=== PATIENT | female | born 1985 | race Caucasian/White ===

== ENCOUNTER 2018-07-29 06:08 | Day surgery (SDC) | payer OTHER ==
[~2018-07-29] VITALS: Ht 165.1 cm; Wt 98.0 kg
[~2018-07-29 06:08] MED LIST: ACET325 PO; DIAZ5 PO; DIPH50 PO; HYDACE5 PO; HYDMOR2 PO; IBUP800 PO; LABE200 PO
--- NOTE | 2018-07-29 06:51 | NUR ---
History, Chart, Medications and Allergies reviewed before start of procedure. Patient confirms NPO status and agrees with scheduled surgery. Lungs clear T/O to Auscultation. Patient reports completing Chlorhexadine shower X2 prior to admission to hospital.
[2018-07-29] MEDS ORDERED: VITAMIN D310000 UNI1 PO (06:52)
[2018-07-29] MEDS ORDERED: PROGESTERONE PO (06:52)
[2018-07-29] MEDS ORDERED: ALBU90OI6 INH (06:53)
--- NOTE | 2018-07-29 13:24 | NUR ---
ROUNDING: PT IS VERY ANXIOUS POST OP. PT DOES NOT WANT MEDICATIONS, SHE DOES NOT WANT HER LAGOS, STATES THAT SHE JUST WANTS TO GO HOME BEACAUSE SHE NEVER WANTED TO HAVE SURGERY. PT STATES SHE WANTS HELP CLEANING HER ELLIOT AREA BUT DOES NOT WANT TO GET OOB AND DOES NOT WANT STAFF HELPING HER. NOTIFIED OF PT'S ANXIOUSNESS. IN ROOM TO SEE PATIENT AND REASSURE HER ON HOSPITAL ROUTINE AND ORDERS. STATES PT CAN SHOWER THIS EVENING IF SHE WANTS AND THAT HER LAGOS CAN BE DC'D IF PT REQUESTS. PT CALM AFTER SPEAKING WITH . MEDICATED FOR PAIN NEEDED.
--- NOTE | 2018-07-29 19:02 | NUR ---
pt has been stable post op. pt calm and cooperative after dr came in to explain plan of care. pain controlled with prn meds. pt clinton dc'd per request, has not had void yet. explained bladder scan and straight cath protocol. pt up to shower this afternoon. small amt drainage to steri strips. reinforced prn. moderate amt mil drainage with some small clots. pt not passing flatus yet. ambulated hallway x1.
[2018-07-30 05:51] LABS: BASOPHILS ABSOLUTE AUTO 0.02 K/mm3 (0.00-0.23); BASOPHILS PERCENT AUTO 0 % (0-2); EOSINOPHILS PERCENT AUTO 0 % (0-6); Hematocrit 35.4 % (33.0-51.0); Hemoglobin 11.4 g/dL (11.5-16.0); IMMATURE GRAN ABSOLUTE AUTO 0.09 K/mm3 (0.00-0.10); IMMATURE GRAN PERCENT AUTO 1 % (0-1); LYMPHOCYTES ABSOLUTE AUTO 1.53 K/mm3 (0.84-5.20); LYMPHOCYTES PERCENT AUTO 10 % (21-46); MONOCYTES ABSOLUTE AUTO 0.85 K/mm3 (0.16-1.47); MONOCYTES PERCENT AUTO 6 % (4-13); Mean Corpuscular HGB 29.4 pg (26.0-34.0); Mean Corpuscular HGB Conc 32.2 g/dL (31.5-36.5); Mean Corpuscular Volume 91 fL (80-100); Mean Platelet Volume 11.3 fL (9.1-12.4); NEUTROPHILS ABSOLUTE AUTO 12.34 K/mm3 (1.96-9.15); NEUTROPHILS PERCENT AUTO 83 % (41-73); Platelet Count 228 K/mm3 (150-400); RDW Standard Deviation 47.1 fL (35.1-46.3); Red Blood Cell Count 3.88 M/mm3 (3.80-5.20); White Blood Cell Count 14.83 K/mm3 (4.00-11.30)
--- NOTE | 2018-07-30 06:38 | NUR ---
SUMMARY: PT IS POD1 LAVH. NO ACUTE CHANGE OVERNIGHT. PT VOIDING, AND DENIES NAUSEA THIS AM. MEDICATED WITH 2MG DILAUDID PO. SURGICAL SITES WNL. PT REPORTS MINIMAL BLEED VAGINALLY. UP INDEPENDENTLY. NO ACUTE CONCERNS, VSS
--- NOTE | 2018-07-30 06:55 | NUR ---
recvd report from previous shift rn caitlyn, pt lying in bed, awake/oriented, pleasant. bed rails up, bed in lowest position, call light within reach
--- NOTE | 2018-07-30 08:10 | NUR ---
dr lassiter to round on pt, pt reports passing blood clot. this rn visualized clot which was approx 2 cm x [address] lassiter.
[2018-07-30] MEDS ORDERED: IBUP800 PO (11:36)
[2018-07-30] MEDS ORDERED: HYDMOR2 PO (11:37)
--- NOTE | 2018-07-30 12:10 | NUR ---
pt provided with discharge instructions, printed materials, prescriptions were provided to who filled them. pt states understanding of instructions. belongings taken to car by . pt transported to awaiting vehicle via wheelchair
== END 2018-07-30 12:09 | disposition home or self-care (01) ==
LOC: ORSCMMR 06:08 → ORD 07:30 → ORSCMMR 07:30 → SURS 11:00 → ORSCMMR 07-30 12:09
PROVIDERS: Obstetrics & Gynecology
PROC: 0UT9FZZ Resection of Uterus, Via Natural or Artificial Opening With Percutaneous Endoscopic Assistance (ICD-10-PCS; principal; 2018-07-29 07:30)
DX: N80.0 Endometriosis of uterus (principal); N92.1 Excessive and frequent menstruation with irregular cycle; N87.0 Mild cervical dysplasia; J45.909 Unspecified asthma, uncomplicated; E66.01 Morbid (severe) obesity due to excess calories; Z68.35 Body mass index [BMI] 35.0-35.9, adult; Z79.899 Other long term (current) drug therapy
CPT/HCPCS: 36415; 85025; 88307; 94640; 94760; C1729; J0330; J0690; J1100; J1200; J1885; J2250; J2370; J2405; J2710; J2765; J3010; J7120

== ENCOUNTER → 2019-08-29 | Outpatient (CLI) | payer OTHER ==
[~2019-08-29] MED LIST changes: +ALBU90OI6 INH; +PROGESTERONE PO; +VITAMIN D310000 UNI1 PO
== END ==
LOC: OLS 13:11 → LAB SHORT 13:11
DX: N39.0 Urinary tract infection, site not specified (principal)
CPT/HCPCS: 87086

== ENCOUNTER 2020-05-15 22:18 | Emergency (ER) | payer OTHER ==
[~2020-05-15] VITALS: Ht 165.1 cm; Wt 93.9 kg
[2020-05-15] MEDS ORDERED: SYMBICORT 80-10.2 GM (23:00)
[2020-05-15] MEDS ORDERED: Cleocin HCl300 MG PO (23:30)
== END 2020-05-15 23:47 | disposition home or self-care (01) ==
LOC: ER 22:18
DX: K02.9 Dental caries, unspecified (principal); J45.909 Unspecified asthma, uncomplicated; Z88.1 Allergy status to other antibiotic agents; Z88.8 Allergy status to other drugs, medicaments and biological substances; Z88.2 Allergy status to sulfonamides; Z79.51 Long term (current) use of inhaled steroids; Z79.899 Other long term (current) drug therapy
CPT/HCPCS: 99282; A9270

== ENCOUNTER → 2022-11-28 | Outpatient (CLI) | payer OTHER ==
[~2022-11-28] MED LIST changes: +Cleocin HCl300 MG PO; +SYMBICORT 80-10.2 GM
[2022-11-28 14:41] LABS: Source, Urine Clean Catch
[2022-11-28 15:30] LABS: Appearance, Urine Clear (Clear); Bilirubin, Urine Neg (Neg); Blood, Urine Neg (Neg); Glucose Qualitative, Urine Neg (Neg); Ketones, Urine Neg (Neg); Leukocyte Esterase, Urine Neg (Neg); Nitrite, Urine Neg (Neg); Protein, Urine Neg (Neg); Specific Gravity, Urine 1.005 (1.003-1.022); Urobilinogen, Urine NORM (Normal)
[2022-11-28 15:49] LABS: Color, Urine Pale Yellow (P-Yellow)
[2022-11-28 15:59] LABS: Protein, Urine Random <5.0 mg/dL (0.0-11.9); Protein/Creat Ratio, Ur Random Unable to Calculate
== END | disposition home or self-care (01) ==
LOC: LAB 14:38 → LAB SHORT 14:38
PROVIDERS: Hospitalist
DX: I10 Essential (primary) hypertension (principal)
CPT/HCPCS: 81003; 82570; 84156

== ENCOUNTER → 2023-06-02 | Outpatient (CLI) | payer OTHER ==
[2023-06-05 08:22] LABS: APTIMA MEDIA TYPE MultiTest Swab; C. TRACHOMATIS BY TMA Negative (Negative); N. GONORRHOEAE BY TMA Negative (Negative); SPECIMEN SOURCE Vaginal; T. VAGINALIS BY TMA Negative (Negative)
== END ==
LOC: LAB 12:53 → LAB SHORT 12:53
PROVIDERS: Registered Nurse Community Health
DX: Z11.3 Encounter for screening for infections with a predominantly sexual mode of transmission (principal); Z20.2 Contact with and (suspected) exposure to infections with a predominantly sexual mode of transmission
CPT/HCPCS: 87491; 87591; 87661